=== PATIENT | female | born 1975 | race Caucasian/White ===

== ENCOUNTER → 2018-04-29 | Outpatient (CLI) | payer BC, OTHER ==
--- NOTE | 2018-04-30 09:13 | MM ---
Reason for exam: clinical finding. History: Patient is postmenopausal, has history of endometrial cancer at age 37, and has history of other cancer at age 36. Family history of breast cancer in maternal grandmother at age 60. Took estrogen for 6 months beginning at age 37. Took progesterone for 6 months beginning at age 37. Physical Findings: Nurse did not find any significant physical abnormalities on exam. MG 3D Diag Mammo W/Cad BUSHRA Bilateral CC and MLO view(s) were taken. There are scattered fibroglandular densities. Bilateral benign axillary lymph nodes seen. These results were verbally communicated with the patient and result sheet given to the patient on 04/30/18. ASSESSMENT: Negative, BI-RAD 1 RECOMMENDATION: Routine screening mammogram of both breasts in 1 year.
== END | disposition home or self-care (01) ==
LOC: RADMAMWWP 15:26
PROVIDERS: ATTEND Family Medicine
DX: N64.4 Mastodynia (principal)
CPT/HCPCS: 77062; 77066

== ENCOUNTER → 2019-01-19 | Outpatient (CLI) | payer BC, OTHER ==
--- NOTE | 2019-01-19 21:30 | MR ---
EXAMINATION TYPE: MR shoulder LT wo con DATE OF EXAM: 01/19/2019 COMPARISON: None HISTORY: Pain in left shoulder TECHNIQUE: Multiplanar, multisequence imaging of the left shoulder is performed without contrast. FINDINGS: Rotator Cuff: Intact. No evident tear. Some mild increased intrinsic signal could be due to some tend inosis. Distal acromion is mildly downturned. Acromioclavicular Joint: Maintained, some arthropathy changes present. There is some T2 intense signa l at the region of the posterior acromion extending along the deltoid musculature proximally Glenohumeral Joint: Maintained Labrum: Intact Biceps Tendon: The long head of biceps is in normal location within bicipital groove. Bone marrow signal: Some increased signal noted on T1 and T2-weighted sequences within the coronoid c ould be indicative of a small hemangioma.. Other: Some fluid signal present at the level of the coracoclavicular ligament possibly indicating so me strain IMPRESSION: Findings could represent a partial deltoid muscle strain or tear. Some mild tendinosis suspected with in the rotator cuff conjoined tendon. Additional findings above.
== END | disposition home or self-care (01) ==
LOC: RADMRIMAIN 18:34
PROVIDERS: ATTEND Physician Assistant
DX: S46.002A Unspecified injury of muscle(s) and tendon(s) of the rotator cuff of left shoulder, initial encounter (principal); R93.7 Abnormal findings on diagnostic imaging of other parts of musculoskeletal system; M19.012 Primary osteoarthritis, left shoulder

== ENCOUNTER 2019-03-06 09:58 | Emergency (ER) | payer BC, OTHER ==
[2019-03-06 10:02] VITALS: RESP 18
[2019-03-06] MEDS ORDERED: IPRATROPIUM-ALBUTEROL 3 ML NEB INHALATION STA (10:34)
[2019-03-06] MEDS ORDERED: methylPREDNISolone SOD SUCCI 125 MG/2 ML VIAL IM ONE (10:34)
--- NOTE | 2019-03-06 10:47 | ED ---
URI HPI - General Chief Complaint: Upper Respiratory Infection Stated Complaint: congestion Time Seen by Provider: 03/06/19 10:09 Source: patient, RN notes reviewed, old records reviewed Mode of arrival: ambulatory Limitations: no limitations - History of Present Illness Initial Comments: Patient is a 43-year-old female with history of asthma presents emergency department today with sore throat, losing her voice, runny nose and cough congestion for the past week. Patient states that she has been using multiple [id number] treatments and breathing treatments with no relief. Patient states that her primary care doctor's close today. Patient states that she's had no other symptoms. - Related Data Home Medications Medication Instructions Recorded Confirmed Cetirizine HCl [Zyrtec] 10 mg PO HS 03/06/19 03/06/19 HYDROcodone/APAP 5-325MG [[place] 1 tab PO DAILY PRN 03/06/19 03/06/19 5-325] Levothyroxine Sodium [Synthroid] 600 mcg PO DAILY 03/06/19 03/06/19 Montelukast Sodium [Singulair] 10 mg PO HS 03/06/19 03/06/19 Otc Cold Medicaine (Unknown) 1 tab PO Q4H PRN 03/06/19 03/06/19 Previous Rx's Medication Instructions Recorded Azithromycin [Zithromax Z-pack] 250 mg PO DIRECTED #6 tab 03/06/19 Promethazine/Dextromethorphan 5 ml PO TID #120 ml 03/06/19 [Phenergan DM Syrup] methylPREDNISolone Dose Pack 4 mg PO DIRECTED #21 package 03/06/19 [Medrol Dose Pack] Allergies Allergy/AdvReac Type Severity Reaction Status Date / Time Penicillins Allergy Rash/Hives Verified 03/06/19 10:20 shellfish derived [Shellfish] Allergy Unknown Verified 03/06/19 10:20 ALL -CILLIN ANTIBIOTICS Allergy Rash/Hives Uncoded 03/06/19 10:20 Review of Systems ROS Statement: Those systems with pertinent positive or pertinent negative responses have been documented in the HPI. ROS Other: All systems not noted in ROS Statement are negative. Past Medical History Additional Past Medical History / Comment(s): arthritis, thyroid CA History of Any Multi-Drug Resistant Organisms: None Reported Past Surgical History: Appendectomy, Section, Hysterectomy Additional Past Surgical History / Comment(s): thyroidectomy Past Psychological History: No Psychological Hx Reported Smoking Status: Never smoker Past Alcohol Use History: None Reported Past Drug Use History: None Reported General Exam - General Exam Comments Initial Comments: Alert and oriented 43-year-old female. No distress. Limitations: no limitations General appearance: alert, in no apparent distress Head exam: Present: atraumatic, normocephalic, normal inspection Eye exam: Present: normal appearance, PERRL, EOMI. Absent: scleral icterus, conjunctival injection, periorbital swelling ENT exam: Present: normal exam, mucous membranes moist. Absent: normal oropharynx (Erythematous oropharynx) Neck exam: Present: normal inspection. Absent: tenderness, meningismus, lymphadenopathy Respiratory exam: Present: wheezes. Absent: respiratory distress, rales, rhonchi, stridor Cardiovascular Exam: Present: regular rate, normal rhythm, normal heart sounds. Absent: systolic murmur, diastolic murmur, rubs, gallop, clicks GI/Abdominal exam: Present: soft, normal bowel sounds. Absent: distended, tenderness, guarding, rebound, rigid Extremities exam: Present: normal inspection, full ROM, normal capillary refill. Absent: tenderness, pedal edema, joint swelling, calf tenderness Back exam: Present: normal inspection Neurological exam: Present: alert, oriented X3, CN II-XII intact Psychiatric exam: Present: normal affect, normal mood Skin exam: Present: warm, dry, intact, normal color. Absent: rash Course Vital Signs 03/06/19 03/06/19 03/06/19 09:59 10:43 10:50 Temperature 98.4 F Pulse Rate 97 100 96 Respiratory 18 Rate Blood Pressure 157/97 O2 Sat by Pulse 97 Oximetry Medical Decision Making - Medical Decision Making 43-year-old female, asthmatic presents with 1 week of progressive dyspnea, cough and sore throat. Patient has had breathing treatments at home with family. This time she does have diminished voice, and hoarse voice. She is given IM Solu-Medrol and breathing treatment. Patient chest x-ray was reviewed. Patient does have erythematous cervix and rapid strep completed. We'll treat the Patient this time for bronchospasm and asthma exacerbation. Patient will be discharged with prescription for azithromycin, steroids and endocrine codeine. Discussed using Mucinex and decongestants medicines well. All questions were answered. - Lab Data Lab Results 03/06/19 Range/Units 10:30 Group A Strep Rapid Negative (Negative) - Radiology Data Radiology results: report reviewed Chest x-ray is negative for any acute cardiopulmonary process. Disposition Clinical Impression: Bronchitis Disposition: HOME SELF-CARE Condition: Good Instructions (If sedation given, give patient instructions): Upper Respiratory Infection (ED), Bronchospasm (ED) Additional Instructions: Rest, remain hydrated. Take medications as prescribed. Close follow-up with he r primary care doctor. Recommended using ALLERGY medication as well as other decongestant medicines. Prescriptions: methylPREDNISolone Dose Pack [Medrol Dose Pack] 4 mg PO DIRECTED #21 package Promethazine/Dextromethorphan [Phenergan DM Syrup] 5 ml PO TID #120 ml Azithromycin [Zithromax Z-pack] 250 mg PO DIRECTED #6 tab Is patient prescribed a controlled substance at d/c from ED?: No Referrals: Jatin Moreno MD [Primary Care Provider] - 1-2 days Time of Disposition: 10:46
--- NOTE | 2019-03-06 11:20 | XR ---
EXAMINATION TYPE: XR chest 2V DATE OF EXAM: 03/06/2019 COMPARISON: April 21, 2014 HISTORY: Chest pain TECHNIQUE: Frontal and lateral views of the chest are obtained. FINDINGS: There is no focal air space opacity. No evidence for pneumothorax. No pleural effusion. The cardiac silhouette size is within normal limits. The osseous structures are grossly intact. IMPRESSION: 1. No acute cardiopulmonary process.
[2019-03-06 11:57] VITALS: BP 147/89; PULSE 91; TEMP 98
== END 2019-03-06 11:51 | disposition home or self-care (01) ==
LOC: EC 09:58
DX: J40 Bronchitis, not specified as acute or chronic (principal); Z85.850 Personal history of malignant neoplasm of thyroid; Z79.890 Hormone replacement therapy; Z79.899 Other long term (current) drug therapy; Z88.0 Allergy status to penicillin; Z91.013 Allergy to seafood; Z88.1 Allergy status to other antibiotic agents
CPT/HCPCS: 94640; 87081; 87430; 71046; 99284; 96372; J2930

== ENCOUNTER → 2021-04-14 | Outpatient (CLI) | payer BC ==
--- NOTE | 2021-04-18 08:54 | MM ---
Reason for exam: screening (asymptomatic). Last mammogram was performed 3 years ago. History: Patient is postmenopausal, has history of endometrial cancer at age 37, and has history of other cancer at age 36. Family history of breast cancer in maternal grandmother at age 60. Took estrogen for 6 months beginning at age 37. Took progesterone for 6 months beginning at age 37. Physical Findings: A clinical breast exam by your physician is recommended on an annual basis and results should be correlated with mammographic findings. MG 3D Screening Mammo W/Cad Bilateral CC and MLO view(s) were taken. Prior study comparison: April 29, 2018, bilateral MG 3d diag mammo w/cad BUSHRA. There are scattered fibroglandular densities. No significant changes when compared with prior studies. ASSESSMENT: Negative, BI-RAD 1 RECOMMENDATION: Routine screening mammogram of both breasts in 1 year.
== END | disposition home or self-care (01) ==
LOC: RADMAMWWP 08:23
PROVIDERS: ATTEND Family Medicine
DX: Z12.31 Encounter for screening mammogram for malignant neoplasm of breast (principal); Z80.3 Family history of malignant neoplasm of breast
CPT/HCPCS: 77063; 77067

== ENCOUNTER 2021-05-04 05:29 | Emergency (ER) | payer BC ==
[2021-05-04] MEDS ORDERED: SODIUM CHLORIDE 0.9% 1,000 ML IV STA (05:55)
--- NOTE | 2021-05-04 05:56 | ED ---
Abdominal Pain HPI - General Chief Complaint: Abdominal Pain Stated Complaint: Back Pain Time Seen by Provider: 05/04/21 05:30 Source: patient, RN notes reviewed, old records reviewed Mode of arrival: ambulatory Limitations: no limitations - History of Present Illness Initial Comments: This is a 45-year-old female DF for severe left flank pain sudden onset of severe left flank pain radiating to back and groin. No prior history of sore pain no prior history of kidney stones. Diminished urine output no fevers. No bowel or bladder issues MD Complaint: flank pain (Left-sided) -: hour(s) Location: LLQ, suprapubic, L flank Radiation: L flank Migration to: suprapubic Severity: severe Severity scale (1-10): 8 Quality: stabbing, sharp Consistency: constant Improves With: nothing Worsens With: nothing Associated Symptoms: nausea - Related Data Home Medications Medication Instructions Recorded Confirmed Cetirizine HCl [Zyrtec] 10 mg PO HS 03/06/19 03/06/19 HYDROcodone/APAP 5-325MG [[place] 1 tab PO DAILY PRN 03/06/19 03/06/19 5-325] Levothyroxine Sodium [Synthroid] 600 mcg PO DAILY 03/06/19 03/06/19 Montelukast Sodium [Singulair] 10 mg PO HS 03/06/19 03/06/19 Otc Cold Medicaine (Unknown) 1 tab PO Q4H PRN 03/06/19 03/06/19 Previous Rx's Medication Instructions Recorded Azithromycin [Zithromax Z-pack (6 250 mg PO DIRECTED #6 tab 03/06/19 tabs)] Promethazine/Dextromethorphan 5 ml PO TID #120 ml 03/06/19 [Phenergan DM Syrup] methylPREDNISolone Dose Pack 4 mg PO DIRECTED #21 package 03/06/19 [Medrol Dose Pack] Allergies Allergy/AdvReac Type Severity Reaction Status Date / Time Penicillins Allergy Rash/Hives Verified 05/04/21 05:45 shellfish derived [Shellfish] Allergy Unknown Verified 05/04/21 05:45 ALL -CILLIN ANTIBIOTICS Allergy Rash/Hives Uncoded 05/04/21 05:45 Review of Systems ROS Statement: Those systems with pertinent positive or pertinent negative responses have been documented in the HPI. ROS Other: All systems not noted in ROS Statement are negative. Past Medical History Past Medical History: Diabetes Mellitus Additional Past Medical History / Comment(s): arthritis, thyroid CA History of Any Multi-Drug Resistant Organisms: None Reported Past Surgical History: Appendectomy, Section, Hysterectomy Additional Past Surgical History / Comment(s): thyroidectomy Past Psychological History: No Psychological Hx Reported Smoking Status: Never smoker Past Alcohol Use History: Occasional Past Drug Use History: None Reported General Exam Limitations: no limitations General appearance: alert, in no apparent distress, anxious Head exam: Present: atraumatic, normocephalic, normal inspection Eye exam: Present: normal appearance, PERRL, EOMI. Absent: scleral icterus, conjunctival injection, periorbital swelling ENT exam: Present: normal exam, mucous membranes moist Neck exam: Present: normal inspection. Absent: tenderness, meningismus, lymphadenopathy Respiratory exam: Present: normal lung sounds bilaterally. Absent: respiratory distress, wheezes, rales, rhonchi, stridor Cardiovascular Exam: Present: regular rate, normal rhythm, normal heart sounds. Absent: systolic murmur, diastolic murmur, rubs, gallop, clicks GI/Abdominal exam: Present: soft, normal bowel sounds. Absent: distended, tenderness, guarding, rebound, rigid Extremities exam: Present: normal inspection, full ROM, normal capillary refill. Absent: tenderness, pedal edema, joint swelling, calf tenderness Back exam: Present: normal inspection Neurological exam: Present: alert, oriented X3, CN II-XII intact Psychiatric exam: Present: normal affect, normal mood Skin exam: Present: warm, dry, intact, normal color. Absent: rash Course Vital Signs 05/04/21 05:40 Temperature 98.1 F Pulse Rate 82 Respiratory 24 Rate Blood Pressure 125/85 O2 Sat by Pulse 97 Oximetry - Reevaluation(s) Reevaluation #1: 05/04/21 06:34 Medical record is reviewed Reevaluation #2: 05/04/21 06:53 Patient's pain is significant improvement Medical Decision Making - Lab Data Result diagrams: 05/04/21 06:21 Lab Results 05/04/21 05/04/21 Range/Units 06:21 06:21 WBC 15.4 H (3.8-10.6) k/uL RBC 4.62 (3.80-5.40) m/uL Hgb 13.6 (11.4-16.0) gm/dL Hct 39.8 (34.0-46.0) % MCV 86.1 (80.0-100.0) fL MCH 29.3 (25.0-35.0) pg MCHC 34.1 (31.0-37.0) g/dL RDW 14.5 (11.5-15.5) % Plt Count 349 (150-450) k/uL MPV 7.4 Neutrophils % 60 % Lymphocytes % 32 % Monocytes % 4 % Eosinophils % 2 % Basophils % 0 % Neutrophils # 9.2 H (1.3-7.7) k/uL Lymphocytes # 5.0 H (1.0-4.8) k/uL Monocytes # 0.6 (0-1.0) k/uL Eosinophils # 0.3 (0-0.7) k/uL Basophils # 0.1 (0-0.2) k/uL Urine HCG, Qual Not Detected (Not Detectd) Disposition Clinical Impression: Abdominal pain, Left ureteral stone Disposition: HOME SELF-CARE Condition: Good Instructions (If sedation given, give patient instructions): Kidney Stones (ED) Is patient prescribed a controlled substance at d/c from ED?: No Referrals: Jatin Moreno MD [Primary Care Provider] - 1-2 days
[2021-05-04] MEDS ORDERED: ONDANSETRON 4 MG/2 ML VIAL IVP STA (06:05)
[2021-05-04] MEDS ORDERED: KETOROLAC 15 MG/ML 1 ML VIAL IVP STA (06:05)
[2021-05-04] MEDS ORDERED: MORPHINE SULFATE 4 MG/ML SYRINGE IVP STA (06:05)
[2021-05-04 06:30] LABS: Basophils # (A) 0.1 k/uL (0-0.2); Basophils % (A) 0 %; Eosinophils # (A) 0.3 k/uL (0-0.7); Eosinophils % (A) 2 %; HCT 39.8 % (34.0-46.0); HGB 13.6 gm/dL (11.4-16.0); Lymphocytes % (A) 32 %; MCH 29.3 pg (25.0-35.0); MCHC 34.1 g/dL (31.0-37.0); MCV 86.1 fL (80.0-100.0); Mean Platelet Volume 7.4; Monocytes # (A) 0.6 k/uL (0-1.0); Monocytes % (A) 4 %; Neutrophils # (A) 9.2 k/uL (1.3-7.7); Neutrophils % (A) 60 %; Platelet Count 349 k/uL (150-450); RBC 4.62 m/uL (3.80-5.40); RDW 14.5 % (11.5-15.5); WBC 15.4 k/uL (3.8-10.6)
[2021-05-04 06:40] LABS: ALT 39 U/L (4-34); AST 47 U/L (14-36); African American GFR (CKD) >90 (>60 ml/min/1.73 sqM); Albumin 4.3 g/dL (3.5-5.0); Alkaline Phosphatase 105 U/L (38-126); Amylase 75 U/L (30-110); Anion Gap 10 mmol/L; Blood Urea Nitrogen 18 mg/dL (7-17); Carbon Dioxide 28 mmol/L (22-30); Chloride 100 mmol/L (98-107); Glucose 190 mg/dL (74-99); Lipase 144 U/L (23-300); Non-African American GFR(CKD) >90 (>60 ml/min/1.73 sqM); Sodium 138 mmol/L (137-145); Total Bilirubin 0.5 mg/dL (0.2-1.3); Total Protein 7.9 g/dL (6.3-8.2)
[2021-05-04 06:57] LABS: Potassium 4.5 mmol/L (3.5-5.1)
[2021-05-04 07:04] LABS: Amorphous Sediment,Urine Rare /hpf; Appearance,Urine Cloudy (Clear); Bilirubin,Urine Negative (Negative); Blood,Urine Small (Negative); Color,Urine Yellow; Glucose,Urine (UA) Negative (Negative); Ketones,Urine Negative (Negative); Leukocyte Esterase,Urine Negative (Negative); Mucus,Urine Occasional /hpf; Nitrite,Urine Negative (Negative); PH, Urine 5.5 (5.0-8.0); Protein,Urine Trace (Negative); RBC,Urine 26 /hpf (0-5); Specific Gravity,Urine 1.022 (1.001-1.035); Squamous Epithelial Cell,Urine 19 /hpf (0-4); Urobilinogen,Urine <2.0 mg/dL (<2.0); WBC,Urine 5 /hpf (0-5)
--- NOTE | 2021-05-04 07:07 | CT ---
EXAMINATION TYPE: CT abdomen pelvis wo con DATE OF EXAM: 05/04/2021 COMPARISON: 04/21/2014 HISTORY: Left Flank Pain for 6.[address] DLP: 2076.4 mGycm Automated exposure control for dose reduction was used. Lung bases are clear of infiltrate. There is no pleural effusion. Heart size is fairly normal. There is no pericardial effusion. Liver spleen stomach pancreas gallbladder appear intact. Bile ducts are not dilated. Liver is enlarge d and measures 25.5 cm. There is no adrenal mass. Kidneys have normal size. There is mild left side hydronephrosis and hydrou reter. There is 2 mm calculus in the distal left ureter close to the ureterovesical junction. Bladder is almost empty. There is no inguinal hernia. I see no calculus within the kidneys. There is no retr operitoneal adenopathy. There is no evidence of a pelvic mass. There is no free fluid in the pelvis. There is no mesenteric e stan. There is no ascites or free air. There is no sign of a bowel obstruction. Appendix is not seen. There is no sign of thickened appendix. There is hysterectomy. Lumbar vertebra have normal alignment. There is no compression fracture. Bony pelvis is intact. Hip j oints are intact. IMPRESSION: Tiny obstructing calculus distal left ureter with mild left-sided hydronephrosis and hydroureter. Obs truction appears new compared to old exam. Hepatomegaly. Fatty infiltration of the liver.
[2021-05-04 07:39] VITALS: BP 150/95; PULSE 87; RESP 18; TEMP 97.7
== END 2021-05-04 07:41 | disposition home or self-care (01) ==
LOC: EC 05:29
DX: N13.2 Hydronephrosis with renal and ureteral calculous obstruction (principal); E11.9 Type 2 diabetes mellitus without complications; Z88.0 Allergy status to penicillin; Z91.013 Allergy to seafood; Z88.1 Allergy status to other antibiotic agents
CPT/HCPCS: 36415; 80053; 82150; 83690; 85025; 81001; 81025; 74176; 99284; 96374; 96375; 96361; J2270; J2405; J1885; 51798

== ENCOUNTER 2021-05-04 18:22 | Emergency (ER) | payer BC ==
[2021-05-04 19:18] VITALS: RESP 18; TEMP 98.3
[2021-05-04] MEDS ORDERED: KETOROLAC 15 MG/ML 1 ML VIAL IVP STA (20:12)
[2021-05-04] MEDS ORDERED: SODIUM CHLORIDE 0.9% 1,000 ML IV ONE (20:13)
[2021-05-04 20:43] LABS: Basophils # (A) 0.1 k/uL (0-0.2); Basophils % (A) 0 %; Eosinophils # (A) 0.1 k/uL (0-0.7); Eosinophils % (A) 1 %; HCT 42.4 % (34.0-46.0); HGB 13.8 gm/dL (11.4-16.0); Lymphocytes # (A) 2.2 k/uL (1.0-4.8); Lymphocytes % (A) 11 %; MCH 28.7 pg (25.0-35.0); MCHC 32.4 g/dL (31.0-37.0); MCV 88.3 fL (80.0-100.0); Monocytes # (A) 0.8 k/uL (0-1.0); Monocytes % (A) 4 %; Neutrophils % (A) 84 %; Platelet Count 295 k/uL (150-450); RDW 14.3 % (11.5-15.5); WBC 20.3 k/uL (3.8-10.6)
[2021-05-04 20:57] LABS: Albumin 4.3 g/dL (3.5-5.0); Calcium 9.6 mg/dL (8.4-10.2); Total Bilirubin 0.5 mg/dL (0.2-1.3)
[2021-05-04 21:06] LABS: Potassium 4.8 mmol/L (3.5-5.1)
[2021-05-04 21:30] LABS: Appearance,Urine Cloudy (Clear); Bacteria,Urine Rare /hpf; Bilirubin,Urine Negative (Negative); Blood,Urine Large (Negative); Budding Yeast,Urine Occasional /hpf; Color,Urine Yellow; Glucose,Urine (UA) Negative (Negative); Ketones,Urine Trace (Negative); Leukocyte Esterase,Urine Negative (Negative); Mucus,Urine Rare /hpf; Nitrite,Urine Negative (Negative); PH, Urine 5.5 (5.0-8.0); Protein,Urine Trace (Negative); RBC,Urine >182 /hpf (0-5); Specific Gravity,Urine 1.021 (1.001-1.035); Squamous Epithelial Cell,Urine 5 /hpf (0-4); Urobilinogen,Urine <2.0 mg/dL (<2.0); WBC,Urine 8 /hpf (0-5)
--- NOTE | 2021-05-04 21:56 | ED ---
Female Urogenital HPI - General Chief complaint: Urogenital Stated complaint: REVISIT Kidney stones Time Seen by Provider: 05/04/21 19:15 Source: patient Mode of arrival: ambulatory Limitations: no limitations - History of Present Illness Initial comments: Patient is a 45-year-old female who presents emergency Department with reported flank pain. Patient was seen in the emergency department earlier today and diagnosed with a kidney stone. States that she was discharged home and told to take Motrin. She has been taking as directed without improvement in her pain. She also feels like she is retaining urine and isn't producing much as she was previously. Denies history of kidney problems. No hematuria. Denies any vaginal bleeding or discharge. No concern for . Admits to nausea without vomiting. No fevers. Admits to chills. Review of the patient's CT demonstrates a 2 mm obstructing calculus of the distal left ureter. 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 - Related Data Home Medications Medication Instructions Recorded Confirmed Cetirizine HCl [Zyrtec] 10 mg PO HS 03/06/19 03/06/19 HYDROcodone/APAP 5-325MG [[place] 1 tab PO DAILY PRN 03/06/19 03/06/19 5-325] Levothyroxine Sodium [Synthroid] 600 mcg PO DAILY 03/06/19 03/06/19 Montelukast Sodium [Singulair] 10 mg PO HS 03/06/19 03/06/19 Otc Cold Medicaine (Unknown) 1 tab PO Q4H PRN 03/06/19 03/06/19 Previous Rx's Medication Instructions Recorded Azithromycin [Zithromax Z-pack (6 250 mg PO DIRECTED #6 tab 03/06/19 tabs)] Promethazine/Dextromethorphan 5 ml PO TID #120 ml 03/06/19 [Phenergan DM Syrup] methylPREDNISolone Dose Pack 4 mg PO DIRECTED #21 package 03/06/19 [Medrol Dose Pack] Cephalexin [Keflex] 500 mg PO Q12HR #14 cap 05/04/21 Fluconazole [Diflucan] 150 mg PO ONCE #1 tab 05/04/21 HYDROcodone/APAP 5-325MG [[place] 5] 1 each PO Q6HR PRN #12 tab 05/04/21 Ketorolac [Toradol] 10 mg PO Q6HR #20 tab 05/04/21 Ondansetron Odt [Zofran Odt] 4 mg PO Q8HR PRN #15 tab 05/04/21 Allergies Allergy/AdvReac Type Severity Reaction Status Date / Time Penicillins Allergy Rash/Hives Verified 05/04/21 19:18 shellfish derived [Shellfish] Allergy Unknown Verified 05/04/21 19:18 ALL -CILLIN ANTIBIOTICS Allergy Rash/Hives Uncoded 05/04/21 19:18 Review of Systems ROS Statement: Those systems with pertinent positive or pertinent negative responses have been documented in the HPI. ROS Other: All systems not noted in ROS Statement are negative. Past Medical History Past Medical History: Diabetes Mellitus Additional Past Medical History / Comment(s): arthritis, thyroid CA History of Any Multi-Drug Resistant Organisms: None Reported Past Surgical History: Appendectomy, Section, Hysterectomy Additional Past Surgical History / Comment(s): thyroidectomy Past Psychological History: No Psychological Hx Reported Smoking Status: Never smoker Past Alcohol Use History: Occasional Past Drug Use History: None Reported General Exam Limitations: no limitations General appearance: alert, in no apparent distress Head exam: Present: atraumatic, normocephalic, normal inspection Eye exam: Present: normal appearance, PERRL, EOMI. Absent: scleral icterus, conjunctival injection, periorbital swelling ENT exam: Present: normal exam, mucous membranes moist Neck exam: Present: normal inspection. Absent: tenderness, meningismus, lymphadenopathy Respiratory exam: Present: normal lung sounds bilaterally. Absent: respiratory distress, wheezes, rales, rhonchi, stridor Cardiovascular Exam: Present: regular rate, normal rhythm, normal heart sounds. Absent: systolic murmur, diastolic murmur, rubs, gallop, clicks GI/Abdominal exam: Present: soft, normal bowel sounds. Absent: distended, tenderness, guarding, rebound, rigid Extremities exam: Present: normal inspection, full ROM, normal capillary refill. Absent: tenderness, pedal edema, joint swelling, calf tenderness Back exam: Present: normal inspection Neurological exam: Present: alert, oriented X3, CN II-XII intact Psychiatric exam: Present: normal affect, normal mood Skin exam: Present: warm, dry, intact, normal color. Absent: rash Course Vital Signs 05/04/21 05/04/21 19:14 22:12 Temperature 98.3 F Pulse Rate 84 79 Respiratory 18 18 Rate Blood Pressure 155/94 130/82 O2 Sat by Pulse 97 98 Oximetry Medical Decision Making - Medical Decision Making Upon arrival patient was placed into room 28. IV is established. Patient was given a liter bolus of normal saline, 15 mg of Toradol. Patient's bladder scanned and had 85 mL of urine in her bladder. She is able to void. Laboratory studies reveal white count of 20.3. Patient reports she always has a white count that is 12-15,000. Informed her that it is mildly elevated above her normal. Creatinine is 1.07. Urinalysis does demonstrate blood, 8 white blood cells, rare bacteria and occasional budding 80s. Informed her that I would like to cover her with Keflex. She'll be given Diflucan to take after her Keflex is over. Patient will also be given [place] and Toradol for pain control. Patient will be given Zofran for nausea. She is given follow-up information for Dr. Archer's office. States she feels comfortable for discharge at this time as she has improvement in her pain. She is asked to return to the emergency room for any new or worsening symptoms. patient was discharged in stable condition - Lab Data Result diagrams: 05/04/21 20:28 05/04/21 20:28 Lab Results 05/04/21 05/04/21 05/04/21 Range/Units 20:28 20:28 20:55 WBC 20.3 H (3.8-10.6) k/uL RBC 4.80 (3.80-5.40) m/uL Hgb 13.8 (11.4-16.0) gm/dL Hct 42.4 (34.0-46.0) % MCV 88.3 (80.0-100.0) fL MCH 28.7 (25.0-35.0) pg MCHC 32.4 (31.0-37.0) g/dL RDW 14.3 (11.5-15.5) % Plt Count 295 (150-450) k/uL MPV 8.0 Neutrophils % 84 % Lymphocytes % 11 % Monocytes % 4 % Eosinophils % 1 % Basophils % 0 % Neutrophils # 17.0 H (1.3-7.7) k/uL Lymphocytes # 2.2 (1.0-4.8) k/uL Monocytes # 0.8 (0-1.0) k/uL Eosinophils # 0.1 (0-0.7) k/uL Basophils # 0.1 (0-0.2) k/uL Sodium 136 L (137-145) mmol/L Potassium 4.8 (3.5-5.1) mmol/L Chloride 98 (98-107) mmol/L Carbon Dioxide 29 (22-30) mmol/L Anion Gap 9 mmol/L BUN 19 H (7-17) mg/dL Creatinine 1.07 H (0.52-1.04) mg/dL Est GFR (CKD-EPI)AfAm 74 (>60 ml/min/1.73 sqM) Est GFR (CKD-EPI)NonAf 64 (>60 ml/min/1.73 sqM) Glucose 141 H (74-99) mg/dL Calcium 9.6 (8.4-10.2) mg/dL Total Bilirubin 0.5 (0.2-1.3) mg/dL AST 44 H (14-36) U/L ALT 37 H (4-34) U/L Alkaline Phosphatase 90 (38-126) U/L Total Protein 8.0 (6.3-8.2) g/dL Albumin 4.3 (3.5-5.0) g/dL Urine Color Yellow Urine Appearance Cloudy H (Clear) Urine pH 5.5 (5.0-8.0) Ur Specific [place] 1.021 (1.001-1.035) Urine Protein Trace H (Negative) Urine Glucose (UA) Negative (Negative) Urine Ketones Trace H (Negative) Urine Blood Large H (Negative) Urine Nitrite Negative (Negative) Urine Bilirubin Negative (Negative) Urine Urobilinogen <2.0 (<2.0) mg/dL Ur Leukocyte Esterase Negative (Negative) Urine RBC >182 H (0-5) /hpf Urine WBC 8 H (0-5) /hpf Ur Squamous Epith Cells 5 H (0-4) /hpf Urine Bacteria Rare H (None) /hpf Urine Mucus Rare H (None) /hpf Urine Yeast (Budding) Occasional H (None) /hpf Disposition Clinical Impression: Left ureteral stone, Abdominal pain, Leukocytosis Disposition: HOME SELF-CARE Condition: Stable Instructions (If sedation given, give patient instructions): Kidney Stones (ED) Additional Instructions: Strain all your urine. Increase fluid intake. Follow up with the urologist in regards to your stone. Return to the emergency department for any new or worsening symptoms Prescriptions: Fluconazole [Diflucan] 150 mg PO ONCE #1 tab Cephalexin [Keflex] 500 mg PO Q12HR #14 cap HYDROcodone/APAP 5-325MG [[place] 5] 1 each PO Q6HR PRN #12 tab PRN Reason: Pain Ketorolac [Toradol] 10 mg PO Q6HR #20 tab Ondansetron Odt [Zofran Odt] 4 mg PO Q8HR PRN #15 tab PRN Reason: Nausea Is patient prescribed a controlled substance at d/c from ED?: Yes When asked, does pt state using other controlled substances?: No If prescribed controlled substance>3 days was MAPS reviewed?: Prescribed <3 Days If opioid is for acute pain is fill amount 7 days or less?: Yes If Rx opioid, was Start Talking consent form obtained?: Yes Referrals: Jatin Moreno MD [Primary Care Provider] - 1-2 days Adam Morris MD [STAFF PHYSICIAN] - 1-2 days Time of Disposition: 21:56
[2021-05-04 22:13] VITALS: BP 130/82; PULSE 79
== END 2021-05-04 22:18 | disposition home or self-care (01) ==
LOC: EC 18:22
DX: N20.1 Calculus of ureter (principal); D72.829 Elevated white blood cell count, unspecified; E11.9 Type 2 diabetes mellitus without complications; M19.90 Unspecified osteoarthritis, unspecified site; Z79.899 Other long term (current) drug therapy
CPT/HCPCS: 51798; 36415; 80053; 85025; 81001; 99284; 96374; 96361; J1885

== ENCOUNTER → 2022-04-26 | Outpatient (CLI) | payer BC ==
--- NOTE | 2022-04-27 07:41 | MM ---
Reason for Exam: Screening (asymptomatic). Last screening mammogram was performed 12 month(s) ago. Patient History: Menarche at age 12. First Full-Term at age 20. Left ovary removed at age 37. Right ovary removed at age 37. Hysterectomy at age 37. Postmenopausal. Endometrial cancer, age 37. Other cancer, age 36. Previous chest radiation therapy at age 36. Estrogen for 6 months starting at age 37. Progesterone for 6 months starting at age 37. Maternal grandmother had breast cancer, age 60. Risk Values: Fatimah 5 year model risk: 0.6%. NCI Lifetime model risk: 7.7%. Prior Study Comparison: 04/29/2018 Bilateral Diagnostic Mammogram, [facility]. 04/14/2021 Bilateral Screening Mammogram, [facility]. Tissue Density: There are scattered fibroglandular densities. Findings: Analyzed By CAD. There is no suspicious group of microcalcifications or new suspicious mass in either breast. Overall Assessment: Negative, BI-RAD 1 Management: Screening Mammogram of both breasts in 1 year. A clinical breast exam by your physician is recommended on an annual basis and results should be correlated with mammographic findings. Electronically signed and approved by: Sam Escalante M.D.
== END | disposition home or self-care (01) ==
LOC: RADMAMWWP 08:05
PROVIDERS: ATTEND Family Medicine
DX: Z12.31 Encounter for screening mammogram for malignant neoplasm of breast (principal); Z85.42 Personal history of malignant neoplasm of other parts of uterus; Z80.3 Family history of malignant neoplasm of breast
CPT/HCPCS: 77063; 77067

== ENCOUNTER → 2022-12-31 | Outpatient (CLI) | payer BC ==
[2022-12-31 15:34] LABS: HCT 46.5 % (37.2-46.3); HGB 13.9 g/dL (12.0-15.0); MCH 26.6 pg (27.0-32.0); MCHC 29.9 g/dL (32.0-37.0); MCV 88.9 fL (80.0-97.0); Mean Platelet Volume 11.1 fL (9.5-12.2); NRBC Per 100 WBC 0 /100 WBCS (0.0-0.0); Platelet Count 282 X 10*3/uL (140-440); RBC 5.23 X 10*6/uL (4.10-5.20); RDW 13.3 % (11.5-14.5); WBC 10.26 X 10*3/uL (4.50-10.00)
[2022-12-31 15:57] LABS: % Iron Saturation 34.69 (12.00-45.00); ALT 15 U/L (8-44); AST 19 U/L (13-35); African American GFR (CKD) 103.2 (60.0-200.0); Albumin 4.2 g/dL (3.8-4.9); Albumin/Globulin Ratio 1.35 (1.60-3.17); Alkaline Phosphatase 77 U/L (41-126); BUN/Creat Ratio 16.38 Ratio (12.00-20.00); Blood Urea Nitrogen 13.1 mg/dL (9.0-27.0); Calcium 9.5 mg/dL (8.7-10.3); Carbon Dioxide 28.7 mmol/L (20.0-27.5); Chloride 107 mmol/L (96-109); Chol/HDL Ratio 4.17 Ratio; Globulin 3.1 g/dL (1.6-3.3); Glucose 90 mg/dL (70-110); Iron 119 ug/dL (50-170); LDL Cholesterol,Calculated 127.6 mg/dL (0.0-131.0); Potassium 4.6 mmol/L (3.5-5.5); Sodium 146 mmol/L (135-145); Total Iron Binding Capacity 343 ug/dL (228-460); Total Protein 7.3 g/dL (6.2-8.2)
== END | disposition home or self-care (01) ==
LOC: LABWHC1 08:48
PROVIDERS: ATTEND Surgery
DX: E66.01 Morbid (severe) obesity due to excess calories (principal); Z98.84 Bariatric surgery status; K91.2 Postsurgical malabsorption, not elsewhere classified; Z68.34 Body mass index [BMI] 34.0-34.9, adult
CPT/HCPCS: 36415; 80053; 80061; 82306; 82607; 82728; 82746; 83036; 83540; 83550; 83970; 84425; 85027

== ENCOUNTER → 2022-12-31 | Outpatient (CLI) | payer BC ==
--- NOTE | 2022-12-31 09:17 | CT ---
EXAMINATION TYPE: CT abdomen wo con CT DLP: 697 mGycm, Automated exposure control for dose reduction was used. DATE OF EXAM: 12/31/2022 8:48 AM COMPARISON: CT abdomen pelvis most recent from 05/04/2016 CLINICAL INDICATION:Female, 47 years old with history of R10.13; LUQ pain TECHNIQUE: Axial CT of the abdomen . Sagittal and coronal reformats were created on a separate works tation. Contrast used: None Oral contrast used: without Oral Contrast FINDINGS: LOWER CHEST: Unremarkable ABDOMEN LIVER: Unremarkable GALLBLADDER AND BILE DUCTS: Unremarkable. PANCREAS: Unremarkable. SPLEEN: Unremarkable. ADRENAL GLANDS: Unremarkable. KIDNEYS AND URETERS: No evidence of hydronephrosis or renal calculus. The ureters are unremarkable. STOMACH AND BOWEL: No evidence of bowel obstruction. Postsurgical changes to the gastric lumen. PERITONEUM/RETROPERITONEUM: No evidence of pneumoperitoneum or free fluid. VASCULATURE: No evidence of aortic aneurysm. MUSCULOSKELETAL: No acute osseous abnormalities LYMPH NODES: No gross evidence for lymphadenopathy. SOFT TISSUE/ABDOMINAL WALL: Unremarkable IMPRESSION: Postsurgical changes of the gastric lumen. No evidence for acute left upper quadrant process. No obst ructive uropathy. No evidence of left rib fracture. Bowel is grossly unremarkable.
== END | disposition home or self-care (01) ==
LOC: RADCTMAIN 08:28
PROVIDERS: ATTEND Family Medicine
DX: R10.13 Epigastric pain (principal)
CPT/HCPCS: 74150; 99213

== ENCOUNTER → 2023-09-24 | Outpatient (CLI) | payer BC ==
--- NOTE | 2023-09-24 14:30 | MM ---
Reason for Exam: Screening (asymptomatic). Last mammogram was performed 1 year(s) and 5 month(s) ago. Patient History: Menarche at age 12. First Full-Term at age 20. Left ovary removed at age 37. Right ovary removed at age 37. Hysterectomy at age 37. Postmenopausal. Other cancer, age 37. Other cancer, age 36. Estrogen for 6 months starting at age 37. Progesterone for 6 months starting at age 37. Paternal grandmother had breast cancer, age 60. Risk Values: Fatimah 5 year model risk: 0.6%. NCI Lifetime model risk: 7.7%. Prior Study Comparison: 04/29/2018 Bilateral Diagnostic Mammogram, [facility]. 04/14/2021 Bilateral Screening Mammogram, [facility]. 04/26/2022 Bilateral MG 3D screening mammo w/cad, [facility]. Tissue Density: There are scattered fibroglandular densities. Findings: Analyzed By CAD. There is no suspicious group of microcalcifications or new suspicious mass. Overall Assessment: Negative, BI-RAD 1 Management: Screening Mammogram of both breasts in [address] [facility] will attempt to contact patient to return for supplemental views and ultrasound if indicated. Patient should continue monthly self-breast exams. A clinical breast exam by your physician is recommended on an annual basis. This exam should not preclude additional follow-up of suspicious palpable abnormalities. Note on Fatimah scores and lifetime risk: 1. A Fatimah score greater than 3% is considered moderate risk. If this is the case, consider specialist referral to assess eligibility for a risk reducing agent. 2. If overall lifetime risk for the development of breast cancer is 20% or higher, the patient may qualify for future screening with alternating mammogram and breast MRI. Electronically signed and approved by: John Gudino DO
== END | disposition home or self-care (01) ==
LOC: RADMAMWWP 12:28
PROVIDERS: ATTEND Family Medicine
DX: Z12.31 Encounter for screening mammogram for malignant neoplasm of breast (principal); Z80.3 Family history of malignant neoplasm of breast; Z78.0 Asymptomatic menopausal state
CPT/HCPCS: 77063; 77067

== ENCOUNTER → 2024-11-02 | Outpatient (CLI) | payer BC ==
--- NOTE | 2024-11-02 09:42 | MM ---
Reason for Exam: Screening (asymptomatic). Last mammogram was performed 1 year(s) and 1 month(s) ago. Patient History: Menarche at age 12. First Full-Term at age 20. Left ovary removed at age 37. Right ovary removed at age 37. Hysterectomy at age 37. Postmenopausal. Other cancer, age 37. Other cancer, age 36. Estrogen for 6 months starting at age 37. Progesterone for 6 months starting at age 37. Paternal grandmother had breast cancer, age 60. Risk Values: Fatimah 5 year model risk: 0.7%. NCI Lifetime model risk: 7.5%. Prior Study Comparison: 04/14/2021 Bilateral Screening Mammogram, [facility]. 04/26/2022 Bilateral MG 3D screening mammo w/cad, [facility]. 09/24/2023 Bilateral MG 3D screening mammo w/cad, [facility]. Tissue Density: There are scattered areas of fibroglandular density. Findings: Analyzed By CAD. Right breast: There is no suspicious group of microcalcifications or new suspicious mass. Left breast: There is no suspicious group of microcalcifications or new suspicious mass. Overall Assessment: Negative, BI-RAD 1 Management: Screening Mammogram of both breasts in [address] [facility] will attempt to contact patient to return for supplemental views and ultrasound if indicated. Patient should continue monthly self-breast exams. A clinical breast exam by your physician is recommended on an annual basis. This exam should not preclude additional follow-up of suspicious palpable abnormalities. Note on Fatimah scores and lifetime risk: 1. A Fatimah score greater than 3% is considered moderate risk. If this is the case, consider specialist referral to assess eligibility for a risk reducing agent. 2. If overall lifetime risk for the development of breast cancer is 20% or higher, the patient may qualify for future screening with alternating mammogram and breast MRI. [facility], , 11/02/2024 9:39 AM. Electronically signed and approved by: John Gudino DO
== END | disposition home or self-care (01) ==
LOC: RADMAMWWP 09:03
PROVIDERS: ATTEND Family Medicine
DX: Z12.31 Encounter for screening mammogram for malignant neoplasm of breast (principal); R92.323 Mammographic fibroglandular density, bilateral breasts; Z78.0 Asymptomatic menopausal state; Z80.3 Family history of malignant neoplasm of breast
CPT/HCPCS: 77063; 77067

== ENCOUNTER → 2025-03-08 | Outpatient (CLI) | payer BC ==
--- NOTE | 2025-03-08 18:29 | XR ---
EXAMINATION TYPE: XR chest 2V DATE OF EXAM: 03/08/2025 5:25 PM COMPARISON: Chest radiographs from 03/06/2019 TECHNIQUE: XR chest 2V Frontal and lateral views of the chest. CLINICAL INDICATION:Female, 49 years old with history of R05.9; FINDINGS: Lungs/Pleura: There is no evidence of pleural effusion, focal consolidation, or pneumothorax. Pulmonary vascularity: Unremarkable. Heart/mediastinum: Cardiomediastinal silhouette is unremarkable. Musculoskeletal: No acute osseous pathology. IMPRESSION: No acute cardiopulmonary disease/process. [facility], , 03/08/2025 6:27 PM
== END | disposition home or self-care (01) ==
LOC: RADXRMAIN 17:14
PROVIDERS: ATTEND Family Medicine
DX: R05.9 Cough, unspecified (principal)
CPT/HCPCS: 71046